=== PATIENT | female | born 1965 | race African-American/Black ===

== ENCOUNTER 2018-01-29 00:02 | Inpatient (IN) | payer MEDICAID ==
[~2018-01-29] VITALS: Ht 152.4 cm; Wt 117.9 kg
--- NOTE | 2018-01-29 00:30 | NUR ---
DR IMELDA CONTRERAS MD AT BEDSIDE FOR MSE.
[2018-01-29] MEDS ORDERED: MORPHINE SULFATE 2 MG/1 ML DISP.SYRIN IV ONE ×2 (01:00→04:15)
[2018-01-29] MEDS ORDERED: ONDANSETRON 4 MG/2 ML VIAL IV ONE ×2 (01:00→04:15)
[2018-01-29 01:09] LABS: *BILIRUBIN,URIN NEGATIVE (NEGATIVE); *BLOOD, URINE Trace-intact (NEGATIVE); *CLARITY,URINE SLIGHTLY CLOUDY (CLEAR); *COLOR,URINE YELLOW (YELLOW); *KETONES,URINE TRACE (NEGATIVE); *PROTEIN,URINE 2+ (NEGATIVE); *UROBILINOGEN,URINE 0.2 E.U./dl (NORMAL); LEUKOCYTE ESTERASE ,URINE NEGATIVE (NEGATIVE); NITRITE, URINE NEGATIVE (NEGATIVE); PH,URINE 5.5 (5.0-8.0); UGLUCOSE NEGATIVE (NEGATIVE)
[2018-01-29 01:10] LABS: BASOPHILS # (AUTO) 0.1 K/uL (0.0-8.0); EOSINOPHILS # (AUTO) 0.2 K/uL (0.0-0.7); EOSINOPHILS % (AUTO) 1.9 % (0.0-7.0); HEMOGLOBIN 11.8 g/dL (10.9-14.3); LYMPHOCYTES # (AUTO) 3.8 K/uL (20.0-40.0); LYMPHOCYTES % (AUTO) 32.7 % (20.5-51.5); MEAN CORPUSCULAR HEMOGLOBIN 27.7 uug (24.7-32.8); MEAN CORPUSCULAR HGB CONC 34 g/dL (32.3-35.6); MEAN CORPUSCULAR VOLUME 81.9 fL (75.5-95.3); MONOCYTES # (AUTO) 1.1 K/uL (2.0-10.0); MONOCYTES % (AUTO) 9.2 % (0.0-11.0); NEUTROPHILS # (AUTO) 6.4 K/uL (1.8-8.9); NEUTROPHILS % (AUTO) 55.2 % (38.5-71.5); PLATELET COUNT (AUTO) 308 K/uL (179-408); RED BLOOD CELL COUNT(AUTO) 4.27 MIL/uL (3.63-4.92); WHITE BLOOD COUNT (AUTO) 11.5 K/uL (3.8-11.8)
--- NOTE | 2018-01-29 01:11 | NUR ---
US AT PT BEDSIDE.
[2018-01-29 01:14] LABS: *URINE HCG, QUAL NEGATIVE (NEGATIVE)
[2018-01-29 01:22] LABS: BILIRUBIN,DIRECT 0.1 mg/dL (0.0-0.2); BILIRUBIN,TOTAL 0.4 mg/dL (0.2-1.0); CREATININE 0.7 mg/dL (0.6-1.3); TOTAL PROTEIN, SERUM 7.8 g/dL (6.4-8.2)
[2018-01-29] MEDS ORDERED: MORPHINE SULFATE 4 MG/1 ML DISP.SYRIN ONE ×3 (01:30→08:26)
[2018-01-29] MEDS ORDERED: ONDANSETRON 4 MG/2 ML VIAL ONE ×3 (01:30→08:26)
[2018-01-29 01:35] LABS: RBC,URINE 0-3 /HPF (0-3)
[2018-01-29 01:36] LABS: BACTERIA,URINE NONE SEEN /HPF (NONE SEEN); CALCIUM OXALATE CRYSTALS,UR MA /HPF (NONE SEEN); MUCUS,URINE MODERATE /LPF (0-FEW); SQUAMOUS EPITHELIAL CELL,UR FEW /HPF (NONE SEEN); WBC,URINE 0-3 /HPF (0-3)
[2018-01-29] MEDS ORDERED: KETOROLAC TROMETHAMINE 30 MG INJ IVP ONE (02:15)
--- NOTE | 2018-01-29 02:38 | NUR ---
RADIOLOGY AT PT BEDSIDE FOR XRAY
--- NOTE | 2018-01-29 02:42 | NUR ---
PT TAKEN TO CT VIA [facility]. NO DISTRESS NOTED AT THIS TIME.
--- NOTE | 2018-01-29 02:58 | NUR ---
PT BACK IN ROOM FROM CT. NO ACUTE EVENTS.
[2018-01-29] MEDS ORDERED: LEVOFLOXACIN 750 MG/D5W 150 ML PIGGYBACK IV ONE ×2 (03:45→05:30)
[2018-01-29] MEDS ORDERED: HYDROMORPHONE 1 MG/1 ML DISP.SYRIN IV ONE (03:45)
[2018-01-29] MEDS ORDERED: IV NORMAL SALINE 1000 ML BAG IV ONE (04:00)
[2018-01-29] MEDS ORDERED: NORMAL SALINE FLUSH 10 ML DISP.SYRIN ONE (04:04)
[2018-01-29] MEDS ORDERED: SWABABLE VALVE TRANSFER SET EA MC ONE (04:04)
[2018-01-29] MEDS ORDERED: IOHEXOL 350 100 ML INFUS..BTL ONE (04:04)
[2018-01-29] MEDS ORDERED: IV NORMAL SALINE 100 ML ONE (04:04)
--- NOTE | 2018-01-29 06:42 | NUR ---
PT AMBULATED TO AND FROM BATHROOM W/ STEADY GAIT. NO DISTRESS NOTED. PT A&OX4. DENIES DIZZINESS OR SOB.
--- NOTE | 2018-01-29 06:53 | NUR ---
PT PENDING DISCHARGE UPON COMPLETION OF IV FLUIDS/ANTIBIOTIC.
--- NOTE | 2018-01-29 07:05 | NUR ---
Evidence Specialist assumes care. Hands off report received from KARINA Vail, for discharge when IV fluids are done. Patient is resting comfortably on gurney.
--- NOTE | 2018-01-29 07:58 | NUR ---
Patient is now c/o dizziness & nausea, MD notified. Patient is for discharge after the IV fluids are finished but patient feels dizzy, nauseous & cold. Extra warm blankets provided, on top of what the patient currently have (4blankets). Comfort and safety measures maintained.
[2018-01-29] MEDS ORDERED: ONDANSETRON IV *ER 4 MG/2 ML VIAL IV ONE (08:30)
[2018-01-29] MEDS ORDERED: MORPHINE SULFATE 4 MG/1 ML DISP.SYRIN IV ONE (08:30)
[2018-01-29 09:30] VITALS: BP 108/48
[2018-01-29] MEDS ORDERED: ZOLPIDEM 5 MG TABLET PO PRN (10:00)
[2018-01-29] MEDS ORDERED: CEFTRIAXONE 1 G in IV DEXTROSE 5% 50 ML IV SCH (10:00)
[2018-01-29] MEDS ORDERED: MORPHINE SULFATE 2 MG/1 ML DISP.SYRIN IV PRN ×2 (10:00→14:00)
[2018-01-29] MEDS ORDERED: MORPHINE SULFATE 4 MG/1 ML DISP.SYRIN IV PRN ×2 (10:15→14:15)
[2018-01-29 11:04] LABS: BASOPHILS # (AUTO) 0.1 K/uL (0.0-8.0); BASOPHILS % (AUTO) 0.8 % (0.0-2.0); EOSINOPHILS # (AUTO) 0.2 K/uL (0.0-0.7); EOSINOPHILS % (AUTO) 2.7 % (0.0-7.0); HEMATOCRIT 35.2 % (31.2-41.9); HEMOGLOBIN 11.8 g/dL (10.9-14.3); LYMPHOCYTES # (AUTO) 2.5 K/uL (20.0-40.0); LYMPHOCYTES % (AUTO) 33.7 % (20.5-51.5); MEAN CORPUSCULAR HEMOGLOBIN 27.9 uug (24.7-32.8); MEAN CORPUSCULAR HGB CONC 33 g/dL (32.3-35.6); MEAN CORPUSCULAR VOLUME 83.6 fL (75.5-95.3); MONOCYTES # (AUTO) 0.5 K/uL (2.0-10.0); MONOCYTES % (AUTO) 6.9 % (0.0-11.0); NEUTROPHILS # (AUTO) 4.2 K/uL (1.8-8.9); NEUTROPHILS % (AUTO) 55.9 % (38.5-71.5); PLATELET COUNT (AUTO) 279 K/uL (179-408); RED BLOOD CELL COUNT(AUTO) 4.22 MIL/uL (3.63-4.92); WHITE BLOOD COUNT (AUTO) 7.5 K/uL (3.8-11.8)
[2018-01-29 11:36] LABS: BILIRUBIN,TOTAL 0.5 mg/dL (0.2-1.0); CREATININE 0.7 mg/dL (0.6-1.3); MAGNESIUM 1.8 mg/dL (1.8-2.4); POTASSIUM 3.6 mmol/L (3.5-5.1); TOTAL PROTEIN, SERUM 7.2 g/dL (6.4-8.2)
[2018-01-29 12:06] VITALS: BP 105/46
[2018-01-29] MEDS: IV NS 1000 ML 1,000 ML IV PRN ×2 (13:24→23:44)
[2018-01-29] MEDS: ACYCLOVIR 200 MG CAPSULE PO SCH ×3 (13:25→21:55)
[2018-01-29 13:31] LABS: THYROID STIMULATING HORMONE 2.216 mIU/mL (0.358-3.740)
[2018-01-29 15:49] VITALS: BP 89/47
[2018-01-29] MEDS: ACETAMINOPHEN 325 MG TABLET PO PRN ×2 (16:56→23:44)
--- NOTE | 2018-01-29 18:45 | NUR ---
Patient is alert, in no distress. Patient c/o headache and right rib pain, pain management as ordered. Assisted patient with toileting needs, all needs attended. IVF running, no infiltration noted. Instructed patient to use call light when assistance is needed, pt verbalized understanding. Safety measures in place.
--- NOTE | 2018-01-29 19:15 | NUR ---
RECEIVED PT AWAKE, ALERT, ORIENTEDX4. PT SHOWS NO SIGNS OF DISTRESS. PT IV INTACT AND PATENT. CALL LIGHT WITHIN REACH, BED ALARM ON AND IN LOW POSITION , SIDE RAILS UPX2. WILL CONTINUE TO MONITOR
[2018-01-29 22:10] VITALS: BP 107/42
[2018-01-29] MEDS: MAGNESIUM HYDROXIDE 30 ML LIQUID UDC PO PRN (23:59)
[2018-01-30] MEDS: AZITHROMYCIN IV 500 MG in IV DEXTROSE 5% 250 ML IV SCH (04:03)
--- NOTE | 2018-01-30 04:39 | NUR ---
PT COMPLAINT OF PAIN. 05/07. GAVE MORPHINE. PT TOLERATED THE MEDICATION. SHE SAID IT HELPS BUT STILL PAINFUL ON HER RIGHT ABDOMEN. PT COUGH OUT PUTUM. SEND THE SPUTUM SAMPLE ON THE LABORATORY. PT SHOWS NO SIGNS OF DISTRESS.SAFETY PROVIDED. WILL CONTINUE TO MONITOR.
[2018-01-30] MEDS: CEFTRIAXONE 2 G in IV DEXTROSE 5% 100 ML IV SCH (05:37)
[2018-01-30] MEDS: ACYCLOVIR 200 MG CAPSULE PO SCH ×5 (05:38→22:42)
[2018-01-30 06:08] LABS: BASOPHILS % (AUTO) 0.7 % (0.0-2.0); EOSINOPHILS # (AUTO) 0.2 K/uL (0.0-0.7); EOSINOPHILS % (AUTO) 3.6 % (0.0-7.0); HEMATOCRIT 32.3 % (31.2-41.9); HEMOGLOBIN 10.9 g/dL (10.9-14.3); LYMPHOCYTES # (AUTO) 2.6 K/uL (20.0-40.0); LYMPHOCYTES % (AUTO) 42.4 % (20.5-51.5); MEAN CORPUSCULAR HEMOGLOBIN 28.2 uug (24.7-32.8); MEAN CORPUSCULAR HGB CONC 34 g/dL (32.3-35.6); MEAN CORPUSCULAR VOLUME 83.2 fL (75.5-95.3); MONOCYTES # (AUTO) 0.5 K/uL (2.0-10.0); MONOCYTES % (AUTO) 7.7 % (0.0-11.0); NEUTROPHILS # (AUTO) 2.8 K/uL (1.8-8.9); NEUTROPHILS % (AUTO) 45.6 % (38.5-71.5); PLATELET COUNT (AUTO) 258 K/uL (179-408); RED BLOOD CELL COUNT(AUTO) 3.88 MIL/uL (3.63-4.92); WHITE BLOOD COUNT (AUTO) 6.1 K/uL (3.8-11.8)
[2018-01-30 06:09] VITALS: BP 131/65
[2018-01-30 06:30] LABS: BILIRUBIN,TOTAL 0.3 mg/dL (0.2-1.0); CREATININE 0.8 mg/dL (0.6-1.3); MAGNESIUM 1.8 mg/dL (1.8-2.4); PHOSPHOROUS 4.1 mg/dL (2.5-4.9); POTASSIUM 3.5 mmol/L (3.5-5.1); TOTAL PROTEIN, SERUM 6.4 g/dL (6.4-8.2)
[2018-01-30] MEDS: PANTOPRAZOLE SODIUM 40 MG TABLET.DR PO SCH (06:40)
--- NOTE | 2018-01-30 06:48 | NUR ---
PT SLEPT THROUGHOUT THE SHIFT . PT SHOWS NO SIGNS OF DISTRESS. PT IV INTACT. PRESCRIBED MEDICATION GIVEN AND PT TOLERATED IT WELL. SAFETY AND COMFORT PROVIDED.ALL NEEDS ARE MET. WILL ENDORSE TO DAYSHIFT NURSE.
[2018-01-30] MEDS: IBUPROFEN 400 MG TABLET PO PRN ×2 (10:57→16:42)
[2018-01-30 11:36] VITALS: BP 117/61
[2018-01-30] MEDS ORDERED: HYDROMORPHONE 1 MG/1 ML DISP.SYRIN IV PRN (12:00)
[2018-01-30] MEDS ORDERED: MORPHINE SULFATE 4 MG/1 ML DISP.SYRIN IV PRN (13:30)
--- NOTE | 2018-01-30 13:55 | NUR ---
Returned valuables to patient per patient's request. Copy of document in the patient's chart. Patient signed, acknowledged and accounted for. Explained to patient that hospital is not liable for any loss of personal belongings, patient verbalized understanding and agreed. Patient prefers to have her belongings with her rather than kept in the hospital locker. Witnessed and documented with another licensed RN.
[2018-01-30 15:34] VITALS: BP 100/43
[2018-01-30] MEDS: ONDANSETRON 4 MG/2 ML VIAL IV PRN (16:42)
[2018-01-30] MEDS: NEOMY/BACITRAC/POLYMI OINT 28.35 GM TUBE TOP SCH ×2 (16:43→20:56)
[2018-01-30] MEDS: ALBUTEROL SULFATE 2.5 MG/3 ML NEBU NEB PRN ×2 (17:23→20:28)
[2018-01-30] MEDS: IPRATROPIUM BROMIDE 0.5 MG/2.5 ML NEBU NEB PRN ×2 (17:23→20:28)
--- NOTE | 2018-01-30 18:59 | NUR ---
Called pharmacy regarding acyclovir not available in the pyxis. Unable to administer medication as med is not available as of this time. Will endorse to oncoming shift RN.
[2018-01-30 19:00] VITALS: BP 154/64
--- NOTE | 2018-01-30 19:20 | NUR ---
RECIEVED PATIENT LYING IN BED. AAOX4. IN NO ACUTE DISTRESS. IV SITE ON LEFT AC INTACT AND PATENT. IVF INFUSING. SAFETY MEASURE INITIATED AND CALL BARON WITHIN REACH.
[2018-01-30] MEDS: MAGNESIUM HYDROXIDE 30 ML LIQUID UDC PO PRN (20:55)
[2018-01-30] MEDS: LACTOBACILLUS RHAMNOSUS GG 1 EACH CAPSULE PO SCH (20:55)
--- NOTE | 2018-01-30 21:15 | NUR ---
INFORMED DOCTOR PATEL THAT MORPHINE 4MG NOT EFFECTIVE ENOUGH FOR PAIN. DOCTOR PATEL WITH NEW ORDER MADE.
[2018-01-30] MEDS: GABAPENTIN 300 MG CAPSULE PO SCH (22:15)
[2018-01-30] MEDS: IV NS 1000 ML 1,000 ML IV PRN (22:47)
--- NOTE | 2018-01-30 23:00 | NUR ---
PATIENT REQUESTED TO HAVE IV SITE CHANGE, STATED LEFT AC IV SITE TENDER. NEW IV SITE STARTED ON RIGHT HAND GAUGE #[id number].
[2018-01-31] MEDS: HYDROMORPHONE 2 MG/1 ML DISP.SYRIN IV PRN ×3 (00:17→17:25)
[2018-01-31] MEDS: ALBUTEROL SULFATE 2.5 MG/3 ML NEBU NEB PRN ×4 (00:24→15:29)
[2018-01-31] MEDS: IPRATROPIUM BROMIDE 0.5 MG/2.5 ML NEBU NEB PRN ×4 (00:24→15:29)
[2018-01-31] MEDS: ONDANSETRON 4 MG/2 ML VIAL IV PRN ×3 (01:44→17:32)
[2018-01-31 04:00] VITALS: BP 135/54
[2018-01-31] MEDS: AZITHROMYCIN IV 500 MG in IV DEXTROSE 5% 250 ML IV SCH (04:01)
[2018-01-31] MEDS: IBUPROFEN 400 MG TABLET PO PRN ×2 (04:30→14:53)
[2018-01-31 05:07] LABS: HEPATITIS A AB, IgM Negative (Negative); HEPATITIS A AB, TOTAL Negative (Negative); HEPATITIS B SURFACE AB Non Reactive (.); HEPATITIS B SURFACE AG Negative (Negative)
[2018-01-31] MEDS: CEFTRIAXONE 2 G in IV DEXTROSE 5% 100 ML IV SCH (05:29)
[2018-01-31] MEDS: GABAPENTIN 300 MG CAPSULE PO SCH ×3 (05:30→21:06)
[2018-01-31] MEDS ORDERED: ACYCLOVIR 200 MG CAPSULE ONE (05:39)
--- NOTE | 2018-01-31 05:47 | NUR ---
AAOX4. IN NO ACUTE DISTRESS. IV SITE ON LEFT AC INTACT AND PATENT. IVF INFUSING. NO ADVERSE EFFECT NOTED FROM IV ABX. NEEDS ATTENDED TO AND MET. SAFETY MEASURE MAINTAINED AND CALL BARON WITHIN REACH.
[2018-01-31] MEDS: ACYCLOVIR 200 MG CAPSULE PO SCH ×5 (06:01→21:06)
[2018-01-31] MEDS: PANTOPRAZOLE SODIUM 40 MG TABLET.DR PO SCH (06:01)
[2018-01-31 06:37] LABS: BASOPHILS # (AUTO) 0.1 K/uL (0.0-8.0); BASOPHILS % (AUTO) 0.8 % (0.0-2.0); EOSINOPHILS # (AUTO) 0.2 K/uL (0.0-0.7); EOSINOPHILS % (AUTO) 2.5 % (0.0-7.0); HEMATOCRIT 31.5 % (31.2-41.9); HEMOGLOBIN 10.5 g/dL (10.9-14.3); LYMPHOCYTES # (AUTO) 2.5 K/uL (20.0-40.0); LYMPHOCYTES % (AUTO) 32.6 % (20.5-51.5); MEAN CORPUSCULAR HEMOGLOBIN 27.8 uug (24.7-32.8); MEAN CORPUSCULAR HGB CONC 33 g/dL (32.3-35.6); MEAN CORPUSCULAR VOLUME 83.3 fL (75.5-95.3); MONOCYTES # (AUTO) 0.5 K/uL (2.0-10.0); MONOCYTES % (AUTO) 6.5 % (0.0-11.0); NEUTROPHILS # (AUTO) 4.3 K/uL (1.8-8.9); NEUTROPHILS % (AUTO) 57.6 % (38.5-71.5); PLATELET COUNT (AUTO) 269 K/uL (179-408); RED BLOOD CELL COUNT(AUTO) 3.78 MIL/uL (3.63-4.92); WHITE BLOOD COUNT (AUTO) 7.5 K/uL (3.8-11.8)
[2018-01-31 07:00] LABS: BILIRUBIN,TOTAL 0.2 mg/dL (0.2-1.0); CREATININE 0.6 mg/dL (0.6-1.3); PHOSPHOROUS 3.5 mg/dL (2.5-4.9); TOTAL PROTEIN, SERUM 6.4 g/dL (6.4-8.2)
[2018-01-31] MEDS: ACETAMINOPHEN 325 MG TABLET PO PRN (08:07)
[2018-01-31] MEDS: LACTOBACILLUS RHAMNOSUS GG 1 EACH CAPSULE PO SCH ×2 (08:07→21:06)
--- NOTE | 2018-01-31 08:30 | NUR ---
AWAKE ALERT COOPERATE WELL SWAIN NO SOB C/O OF H/A THIS AM MED PRN GIVEN ORDER OOB UP AND USE COMMODE AT BEDSIDE VOIDING WELL CONTINUE IVF INFUSION WELL RFA RT GIVEN TREATMENT JOYCE PROCEDURE WELL RESTING QUIET WITH CALL BARON IN REACH
[2018-01-31] MEDS: NEOMY/BACITRAC/POLYMI OINT 28.35 GM TUBE TOP SCH ×2 (10:28→21:07)
[2018-01-31 11:50] VITALS: BP 114/56
--- NOTE | 2018-01-31 12:00 | NUR ---
OOB AMBULATE WITH PT IN THE [address] DOING WELL
[2018-01-31 16:12] VITALS: BP 124/67
--- NOTE | 2018-01-31 17:00 | NUR ---
STABLE HEMODYNAMIC STATUS ,NO ACUTE DISTRESS ,PAIN UNDER CONTROL SAFETY MEASURE PROVIDED CALL LIGHT IN REACH
[2018-01-31] MEDS: IV NS 1000 ML 1,000 ML IV PRN (18:36)
[2018-01-31 19:30] VITALS: BP 117/69
[2018-01-31] MEDS: IPRATROPIUM BROMIDE 0.5 MG/2.5 ML NEBU NEB SCH (19:40)
[2018-01-31] MEDS: ALBUTEROL SULFATE 2.5 MG/3 ML NEBU NEB SCH (19:41)
--- NOTE | 2018-01-31 20:00 | NUR ---
PATIENT IS AWAKE IN BED AAOX3. DENIES PAIN ON ASSESSMENT. NO SOB OR RESP DISTRESS BREATHING TX WAS GIVEN BY RT, LUNG SOUNDS CLEAR TO AUSCULTATE. SAFETY AND COMFORT MEASURES IN PLACE. CALL LIGHT LEFT WITHIN PATIENT'S REACH
[2018-01-31] MEDS: MORPHINE SULFATE 4 MG/1 ML DISP.SYRIN IV PRN (21:08)
[2018-02-01] MEDS: IPRATROPIUM BROMIDE 0.5 MG/2.5 ML NEBU NEB SCH ×4 (01:45→20:50)
[2018-02-01] MEDS: ALBUTEROL SULFATE 2.5 MG/3 ML NEBU NEB SCH ×4 (01:45→20:50)
[2018-02-01 04:57] VITALS: BP 134/65
[2018-02-01] MEDS: IV NS 1000 ML 1,000 ML IV PRN ×2 (05:02→21:14)
[2018-02-01] MEDS: AZITHROMYCIN IV 500 MG in IV DEXTROSE 5% 250 ML IV SCH (05:03)
[2018-02-01] MEDS: IPRATROPIUM BROMIDE 0.5 MG/2.5 ML NEBU NEB PRN (05:37)
[2018-02-01] MEDS: ALBUTEROL SULFATE 2.5 MG/3 ML NEBU NEB PRN (05:37)
[2018-02-01] MEDS: MORPHINE SULFATE 4 MG/1 ML DISP.SYRIN IV PRN ×5 (05:42→23:35)
[2018-02-01] MEDS: PANTOPRAZOLE SODIUM 40 MG TABLET.DR PO SCH (06:10)
[2018-02-01] MEDS: ACYCLOVIR 200 MG CAPSULE PO SCH ×5 (06:10→23:35)
[2018-02-01] MEDS: GABAPENTIN 300 MG CAPSULE PO SCH ×3 (06:11→21:12)
[2018-02-01] MEDS: CEFTRIAXONE 2 G in IV DEXTROSE 5% 100 ML IV SCH (06:11)
[2018-02-01] MEDS: ONDANSETRON 4 MG/2 ML VIAL IV PRN ×2 (06:17→21:12)
--- NOTE | 2018-02-01 06:40 | NUR ---
PATIENT SLEPT WELL THROUGH THE SHIFT, BREATHING TREATMENT AND PAIN PAIN MEDS GIVEN REQUESTED BY PATIENT. NO RESP OR SOB AT THIS TIME. NO FEVER, VSS WNL. NO SIGNIFICANT CHANGES IN STATUS. SAFETY MEASURES MAINTAINED AT ALL TIMES
[2018-02-01 06:54] LABS: BASOPHILS % (AUTO) 0.5 % (0.0-2.0); EOSINOPHILS # (AUTO) 0.2 K/uL (0.0-0.7); EOSINOPHILS % (AUTO) 2.7 % (0.0-7.0); HEMATOCRIT 30.6 % (31.2-41.9); HEMOGLOBIN 10.3 g/dL (10.9-14.3); LYMPHOCYTES # (AUTO) 2.6 K/uL (20.0-40.0); MEAN CORPUSCULAR HGB CONC 34 g/dL (32.3-35.6); MEAN CORPUSCULAR VOLUME 83.1 fL (75.5-95.3); MONOCYTES # (AUTO) 0.5 K/uL (2.0-10.0); MONOCYTES % (AUTO) 5.9 % (0.0-11.0); NEUTROPHILS # (AUTO) 4.8 K/uL (1.8-8.9); NEUTROPHILS % (AUTO) 58.9 % (38.5-71.5); PLATELET COUNT (AUTO) 288 K/uL (179-408); RED BLOOD CELL COUNT(AUTO) 3.69 MIL/uL (3.63-4.92); WHITE BLOOD COUNT (AUTO) 8.1 K/uL (3.8-11.8)
[2018-02-01 07:03] LABS: BILIRUBIN,TOTAL 0.2 mg/dL (0.2-1.0); CREATININE 0.6 mg/dL (0.6-1.3); MAGNESIUM 1.7 mg/dL (1.8-2.4); PHOSPHOROUS 3.9 mg/dL (2.5-4.9); POTASSIUM 3.8 mmol/L (3.5-5.1); TOTAL PROTEIN, SERUM 6.3 g/dL (6.4-8.2)
[2018-02-01] MEDS: NEOMY/BACITRAC/POLYMI OINT 28.35 GM TUBE TOP SCH ×2 (09:00→21:00)
[2018-02-01] MEDS: LACTOBACILLUS RHAMNOSUS GG 1 EACH CAPSULE PO SCH ×2 (09:24→21:11)
[2018-02-01] MEDS: IBUPROFEN 400 MG TABLET PO PRN (09:24)
[2018-02-01] MEDS ORDERED: MAGNESIUM SULFATE/D5W 100 ML IV SCH (10:45)
[2018-02-01 11:04] LABS: IRON, SERUM 28 ug/dL (50-175)
[2018-02-01] MEDS ORDERED: GUAIFENESIN/DEXTROMETHORPHAN TAB.SR.12H PO SCH (11:15)
[2018-02-01] MEDS ORDERED: NORMAL SALINE NASAL 45 ML BOTTLE NS PRN ×2 (13:15)
[2018-02-01 14:09] VITALS: BP 133/80
[2018-02-01 16:15] VITALS: BP 124/61
--- NOTE | 2018-02-01 19:07 | NUR ---
patient has been cooperative with care, frequent requests for pain medication. Patient is urinating an abnormal amount. Currently patient in bed, no distress noted at this time. Bed in low position, side rails up x2, call light in reach.
[2018-02-01 20:00] VITALS: BP 115/58
[2018-02-01] MEDS ORDERED: GUAIFENESIN/DEXTROMETHORPHAN 5 ML UDC ONE (20:37)
[2018-02-01] MEDS: DEXTROMETHORPHAN PO SCH (21:12)
[2018-02-01] MEDS: GUAIFENESIN PO SCH (21:12)
[2018-02-01] MEDS: MAGNESIUM HYDROXIDE 30 ML LIQUID UDC PO PRN (23:35)
[2018-02-02] MEDS: MORPHINE SULFATE 4 MG/1 ML DISP.SYRIN IV PRN ×3 (00:43→14:16)
[2018-02-02] MEDS: ALBUTEROL SULFATE 2.5 MG/3 ML NEBU NEB SCH ×3 (01:30→12:39)
[2018-02-02] MEDS: IPRATROPIUM BROMIDE 0.5 MG/2.5 ML NEBU NEB SCH ×3 (01:30→12:39)
[2018-02-02] MEDS: IBUPROFEN 400 MG TABLET PO PRN ×2 (02:50→09:03)
[2018-02-02] MEDS: ALBUTEROL SULFATE 2.5 MG/3 ML NEBU NEB PRN ×2 (03:14→16:54)
[2018-02-02] MEDS: IPRATROPIUM BROMIDE 0.5 MG/2.5 ML NEBU NEB PRN ×2 (03:14→16:54)
[2018-02-02 04:00] VITALS: BP 104/50
[2018-02-02] MEDS: AZITHROMYCIN IV 500 MG in IV DEXTROSE 5% 250 ML IV SCH (04:46)
[2018-02-02] MEDS: GABAPENTIN 300 MG CAPSULE PO SCH ×2 (06:04→14:15)
[2018-02-02] MEDS: ACYCLOVIR 200 MG CAPSULE PO SCH ×2 (06:04→10:21)
[2018-02-02] MEDS: CEFTRIAXONE 2 G in IV DEXTROSE 5% 100 ML IV SCH (06:04)
[2018-02-02] MEDS: PANTOPRAZOLE SODIUM 40 MG TABLET.DR PO SCH (06:05)
[2018-02-02] MEDS: ONDANSETRON 4 MG/2 ML VIAL IV PRN (06:14)
[2018-02-02 06:41] LABS: BASOPHILS % (AUTO) 0.6 % (0.0-2.0); EOSINOPHILS # (AUTO) 0.2 K/uL (0.0-0.7); EOSINOPHILS % (AUTO) 2.7 % (0.0-7.0); HEMATOCRIT 30.2 % (31.2-41.9); HEMOGLOBIN 10.1 g/dL (10.9-14.3); LYMPHOCYTES # (AUTO) 2.2 K/uL (20.0-40.0); LYMPHOCYTES % (AUTO) 26.6 % (20.5-51.5); MEAN CORPUSCULAR HGB CONC 34 g/dL (32.3-35.6); MEAN CORPUSCULAR VOLUME 83.7 fL (75.5-95.3); MONOCYTES # (AUTO) 0.4 K/uL (2.0-10.0); MONOCYTES % (AUTO) 4.7 % (0.0-11.0); NEUTROPHILS # (AUTO) 5.5 K/uL (1.8-8.9); NEUTROPHILS % (AUTO) 65.4 % (38.5-71.5); PLATELET COUNT (AUTO) 316 K/uL (179-408); RED BLOOD CELL COUNT(AUTO) 3.61 MIL/uL (3.63-4.92); WHITE BLOOD COUNT (AUTO) 8.3 K/uL (3.8-11.8)
--- NOTE | 2018-02-02 06:56 | NUR ---
Pt cooperative with all care throughout the entire shift. Pain management provided as ordered. Urine strained and stool sample collected. No s/s of acute distress at this time. Unable to apply triple abx d/t it being unavailable, pt aware. Safe environment provided at all times. Will endorse accordingly.
[2018-02-02 07:08] LABS: BILIRUBIN,TOTAL 0.2 mg/dL (0.2-1.0); CREATININE 0.7 mg/dL (0.6-1.3); MAGNESIUM 1.9 mg/dL (1.8-2.4); PHOSPHOROUS 3.8 mg/dL (2.5-4.9); POTASSIUM 3.6 mmol/L (3.5-5.1); TOTAL PROTEIN, SERUM 6.4 g/dL (6.4-8.2)
--- NOTE | 2018-02-02 07:20 | NUR ---
RECEIVED REPORT FROM HHA NURSE, PATIENT IN BED ASLEEP, NO DISTRESS NOTED, BED IN LOW POSITION, SIDE RAILS UP X2.
[2018-02-02 08:09] LABS: *OCCULT BLOOD STOOL NEGATIVE (NEGATIVE)
[2018-02-02] MEDS: LACTOBACILLUS RHAMNOSUS GG 1 EACH CAPSULE PO SCH (09:03)
[2018-02-02] MEDS: NEOMY/BACITRAC/POLYMI OINT 28.35 GM TUBE TOP SCH (09:03)
[2018-02-02] MEDS: DEXTROMETHORPHAN PO SCH (09:11)
[2018-02-02] MEDS: GUAIFENESIN PO SCH (09:11)
[2018-02-02 11:40] VITALS: BP 145/81
[2018-02-02] MEDS ORDERED: VALACYCLOVIR HCL 500 MG TABLET PO SCH (14:00)
[2018-02-02] MEDS ORDERED: GABA-534 PO (14:25)
[2018-02-02] MEDS ORDERED: LEVO500T2 PO (14:25)
[2018-02-02] MEDS ORDERED: IBUP-1953 PO (14:25)
[2018-02-02] MEDS ORDERED: LACT1CAP57 PO ×2 (14:25→14:45)
[2018-02-02] MEDS ORDERED: VALA500T PO (14:25)
[2018-02-02] MEDS ORDERED: GUAI5SYR PO (14:25)
[2018-02-02] MEDS ORDERED: FERR325T6 PO (14:40)
[2018-02-02 16:10] VITALS: BP 149/83
--- NOTE | 2018-02-02 18:42 | NUR ---
Patient was given discharge instructions, iv removed and pictures taken. Patient refused to have a follow up appointment as she will follow up with her own doctor. Pharmacist met with patient and explained medications in depth.
[2018-02-02 21:07] LABS: HEPATITIS Be ANTIGEN Negative (Negative)
[2018-02-03] MEDS ORDERED: LEVOFLOXACIN 500 MG TABLET PO SCH (09:00)
== END 2018-02-02 18:43 | disposition home or self-care (01) | DRG 139 ==
LOC: ER 00:12 → MED 09:04
PROVIDERS: ADMIT Internal Medicine; ATTEND Internal Medicine
DX: J18.9 Pneumonia, unspecified organism (principal); E44.0 Moderate protein-calorie malnutrition; Z68.43 Body mass index [BMI] 50.0-59.9, adult; B02.29 Other postherpetic nervous system involvement; K76.0 Fatty (change of) liver, not elsewhere classified; E83.51 Hypocalcemia; E66.01 Morbid (severe) obesity due to excess calories; M41.9 Scoliosis, unspecified; N28.1 Cyst of kidney, acquired; Z82.49 Family history of ischemic heart disease and other diseases of the circulatory system; Z90.710 Acquired absence of both cervix and uterus; M65.221 Calcific tendinitis, right upper arm; K42.9 Umbilical hernia without obstruction or gangrene; E78.5 Hyperlipidemia, unspecified; D50.9 Iron deficiency anemia, unspecified; Z77.22 Contact with and (suspected) exposure to environmental tobacco smoke (acute) (chronic); Z71.3 Dietary counseling and surveillance; R09.82 Postnasal drip; R73.9 Hyperglycemia, unspecified; K82.8 Other specified diseases of gallbladder
CPT/HCPCS: 36415; 71045; 71275; 76705; 82785; 83550; 83605; 83690; 83735; 84100; 84443; 84703; 85025; 86704; 86705; 86706; 86708; 86709; 86803; 87040; 87070; 87340; 87350; 87400; 94640; 94664; 97116; 97530; A4663; J0456; J0696; J1170; J1885; J1956; J2270; J2405; J3475; J3490; J3590; J7030; J7060; Q9967

== ENCOUNTER 2018-04-10 16:08 | Emergency (ER) | payer MEDICAID ==
[~2018-04-10] VITALS: Ht 152.4 cm; Wt 117.9 kg
[~2018-04-10 16:08] MED LIST: FERR325T6 PO; GABA-534 PO; GUAI5SYR PO; IBUP-1953 PO; LACT1CAP57 PO; LEVO500T2 PO; VALA500T PO
--- NOTE | 2018-04-10 16:25 | NUR ---
Dr Portillo at the bedside for MSE.
[2018-04-10] MEDS ORDERED: ONDANSETRON 4 MG/2 ML VIAL IM ONE (16:30)
[2018-04-10] MEDS ORDERED: DEXAMETHASONE SOD PHOSPHATE 4 MG INJ IM ONE (16:30)
[2018-04-10] MEDS ORDERED: HYDROMORPHONE 1 MG/1 ML DISP.SYRIN IM ONE ×2 (16:30→18:15)
[2018-04-10] MEDS ORDERED: HYDROMORPHONE 1 MG/1 ML DISP.SYRIN ONE ×2 (16:40→18:11)
[2018-04-10] MEDS ORDERED: DEXAMETHASONE SOD PHOSPHATE 4 MG INJ ONE (16:40)
[2018-04-10] MEDS ORDERED: ONDANSETRON 4 MG/2 ML VIAL ONE (16:41)
[2018-04-10 18:45] VITALS: BP 127/61
--- NOTE | 2018-04-10 18:45 | NUR ---
Patient discharged to home in stable conditon. Written and verbal after care instructions given. Patient verbalizes understanding of instructions.
== END 2018-04-10 18:46 | disposition home or self-care (01) ==
LOC: ER 16:11
DX: M75.32 Calcific tendinitis of left shoulder (principal)
CPT/HCPCS: 73030; A4663; J1100; J1170; J2405